=== PATIENT | male | born 1960 | race Hispanic/Latino ===

== ENCOUNTER 2020-11-09 06:34 | Inpatient (IN) | payer BC ==
[2020-11-09] MEDS ORDERED: Ketorolac Tromethamine 30 MG/ML VIAL ONE (07:08)
[2020-11-09 07:35] LABS: #Basophils 0.1 10x3/uL (0.0-0.2); #Monocytes 1.3 10x3/uL (0.0-1.1); #Neutrophils 10.3 10x3/uL (1.5-8.4); %Basophils 0.5 % (0.0-2.0); %Eosinophils 0.1 % (0.0-6.0); %Lymphocytes 13.4 % (18.0-47.0); %Monocytes 9.3 % (0.0-10.0); %Neutrophils 75.7 % (40.0-75.0); Hemoglobin 13.3 g/dL (13.5-17.5); Mean Corpuscular HGB CONC 34.3 g/dL (32.0-36.0); Mean Corpuscular Hemoglobin 30.8 pg (27.0-33.0); Mean Corpuscular Volume 89.8 fl (81.2-95.1); Platelet Count 292 10x3/uL (150-450); RBC Distribution Width 17.3 % (11.5-14.5); Red Blood Cell (RBC) Count 4.32 10x6/uL (4.32-5.72); White Blood Cell (WBC) Count 13.6 10x3/uL (3.5-10.5)
[2020-11-09 07:47] LABS: ALT (SGPT) 27 U/L (8-55); AST (SGOT) 22 U/L (5-34); Albumin 3.9 g/dL (3.5-5.0); Alkaline Phosphatase 101 U/L (40-110); Anion Gap 17 mmol/L (10-20); BUN (Urea Nitrogen) 16 mg/dL (8.4-25.7); Bilirubin, Total 0.4 mg/dL (0.2-1.2); Calc. Creatinine Clearance 0 mL/min (70-130); Carbon Dioxide 22 mmol/L (22-29); Chloride 103 mmol/L (98-107); Globulin 3.3 g/dL (2.4-3.5); Glucose 103 mg/dL (70-105); Potassium 3.8 mmol/L (3.5-5.1); Protein, Total 7.2 g/dL (6.0-8.3); Sodium 138 mmol/L (136-145)
[2020-11-09] MEDS ORDERED: cefTRIAXone\\ROCEPHIN 2 GM VIAL ONE (08:15)
[2020-11-09 08:24] LABS: Bilirubin 1+ (Negative); Blood, Urine 10 (Negative); Clarity Clear (Clear); Glucose, Urine (Dipstick) Normal (Negative); Ketone, Urine 5 mg/dL (Negative); Leukocyte 25 (Negative); Nitrite Negative (Negative); Protein, Urine (Dipstick) 100 mg/dl (Neg-Trace)
[2020-11-09] MEDS ORDERED: Senokot S 8.6-50 MG TAB PO PRN (08:25)
[2020-11-09] MEDS ORDERED: Ondansetron PF 4 MG/2 ML Vial IVP PRN (08:25)
[2020-11-09] MEDS ORDERED: HumaLOG 300 UNITS/3 ML VIAL SC PRN (08:29)
[2020-11-09] MEDS ORDERED: Dextrose 5% in Water 1,000 ML IV PRN (08:29)
[2020-11-09] MEDS ORDERED: Dextrose 50% Abboject 50 ML SYRINGE SLOW IVP PRN (08:29)
[2020-11-09 08:43] LABS: RBC/HPF 0-3 HPF (0-3); Squamous Epithelial 0-3 HPF (0-3)
[2020-11-09 08:44] LABS: Bacteria/HPF 1+ HPF (None Seen); Calcium Oxalate Crystals 1+ HPF (None Seen)
[2020-11-09] MEDS ORDERED: Azithromycin 500 MG VIAL ONE (09:03)
[2020-11-09 09:57] LABS: SARS-CoV-2 NAA Rapid Test Not Detected (NotDetected)
[2020-11-09] MEDS ORDERED: Acetaminophen 500 MG TAB ONE (10:28)
[2020-11-09 11:48] VITALS: BMI 27.4
[2020-11-09] MEDS ORDERED: predniSONE 20 MG TAB PO SCH (12:00)
[2020-11-09] MEDS ORDERED: Losartan Potassium 50 MG TAB PO SCH (12:00)
[2020-11-09] MEDS ORDERED: Enoxaparin Sodium 40 MG/0.4 ML SYRINGE SC SCH (12:00)
[2020-11-09] MEDS: Nicotine 21 MG PATCH TD SCH (15:44)
[2020-11-09] MEDS: Clopidogrel Bisulfate 75 MG TAB PO SCH (15:44)
[2020-11-09] MEDS: Acetaminophen 325 MG TAB PO PRN ×2 (15:55→20:00)
[2020-11-09] MEDS: Atorvastatin Calcium 40 MG TAB PO SCH (20:00)
[2020-11-10] MEDS: Acetaminophen 325 MG TAB PO PRN ×4 (00:15→20:48)
[2020-11-10 05:18] LABS: #Basophils 0.1 10x3/uL (0.0-0.2); #Monocytes 0.7 10x3/uL (0.0-1.1); #Neutrophils 12.3 10x3/uL (1.5-8.4); %Basophils 0.4 % (0.0-2.0); %Lymphocytes 7.4 % (18.0-47.0); %Monocytes 4.8 % (0.0-10.0); %Neutrophils 85.9 % (40.0-75.0); Hemoglobin 12.6 g/dL (13.5-17.5); Mean Corpuscular HGB CONC 34.6 g/dL (32.0-36.0); Mean Corpuscular Hemoglobin 30.8 pg (27.0-33.0); Mean Platelet Volume 11.1 fl (7.4-10.4); Platelet Count 300 10x3/uL (150-450); RBC Distribution Width 17.3 % (11.5-14.5); Red Blood Cell (RBC) Count 4.09 10x6/uL (4.32-5.72); White Blood Cell (WBC) Count 14.3 10x3/uL (3.5-10.5)
[2020-11-10 05:28] LABS: Anion Gap 15 mmol/L (10-20); BUN (Urea Nitrogen) 15 mg/dL (8.4-25.7); Calc. Creatinine Clearance 102 mL/min (70-130); Calcium 9.1 mg/dL (7.8-10.44); Carbon Dioxide 20 mmol/L (22-29); Chloride 103 mmol/L (98-107); Glucose 231 mg/dL (70-105); Potassium 4.2 mmol/L (3.5-5.1); Sodium 134 mmol/L (136-145)
[2020-11-10] MEDS: metFORMIN 500 MG TAB PO SCH ×2 (08:04→08:35)
[2020-11-10] MEDS: Clopidogrel Bisulfate 75 MG TAB PO SCH (08:04)
[2020-11-10] MEDS: cefTRIAXone\\ROCEPHIN 1 GM in Sodium Chloride 0.9% 100 ML IVPB SCH (08:04)
[2020-11-10] MEDS: predniSONE 20 MG TAB PO SCH (08:05)
[2020-11-10] MEDS: Enoxaparin Sodium 40 MG/0.4 ML SYRINGE SC SCH ×2 (08:05→14:34)
[2020-11-10] MEDS: Losartan Potassium 50 MG TAB PO SCH (08:05)
[2020-11-10] MEDS: Azithromycin 500 MG in Sodium Chloride 0.9% 250 ML 250 ML IVPB SCH (09:33)
[2020-11-10] MEDS: Nicotine 21 MG PATCH TD SCH ×2 (14:28→14:34)
[2020-11-10] MEDS: Atorvastatin Calcium 40 MG TAB PO SCH (20:49)
[2020-11-11] MEDS: Acetaminophen 325 MG TAB PO PRN ×5 (00:28→19:27)
[2020-11-11] MEDS: Albuterol Sulfate 2.5 mg/3 ml Neb NEB PRN ×2 (01:43→13:04)
[2020-11-11 06:40] LABS: #Monocytes 0.8 10x3/uL (0.0-1.1); #Neutrophils 9.8 10x3/uL (1.5-8.4); %Basophils 0.2 % (0.0-2.0); %Lymphocytes 11.8 % (18.0-47.0); %Monocytes 6.6 % (0.0-10.0); %Neutrophils 79.8 % (40.0-75.0); Hemoglobin 11.8 g/dL (13.5-17.5); Mean Corpuscular HGB CONC 34.5 g/dL (32.0-36.0); Mean Platelet Volume 10.8 fl (7.4-10.4); Platelet Count 324 10x3/uL (150-450); RBC Distribution Width 17.2 % (11.5-14.5); Red Blood Cell (RBC) Count 3.93 10x6/uL (4.32-5.72); White Blood Cell (WBC) Count 12.2 10x3/uL (3.5-10.5)
[2020-11-11 07:08] LABS: Anion Gap 18 mmol/L (10-20); BUN (Urea Nitrogen) 16 mg/dL (8.4-25.7); Calc. Creatinine Clearance 97 mL/min (70-130); Calcium 9.2 mg/dL (7.8-10.44); Carbon Dioxide 19 mmol/L (22-29); Chloride 101 mmol/L (98-107); Glucose 118 mg/dL (70-105); Potassium 3.8 mmol/L (3.5-5.1); Sodium 134 mmol/L (136-145)
[2020-11-11] MEDS: Losartan Potassium 50 MG TAB PO SCH (10:22)
[2020-11-11] MEDS: Enoxaparin Sodium 40 MG/0.4 ML SYRINGE SC SCH (10:23)
[2020-11-11] MEDS: cefTRIAXone\\ROCEPHIN 1 GM in Sodium Chloride 0.9% 100 ML IVPB SCH (10:23)
[2020-11-11] MEDS: metFORMIN 500 MG TAB PO SCH (10:29)
[2020-11-11] MEDS: predniSONE 20 MG TAB PO SCH (10:29)
[2020-11-11] MEDS: Clopidogrel Bisulfate 75 MG TAB PO SCH (10:29)
[2020-11-11] MEDS: Azithromycin 500 MG in Sodium Chloride 0.9% 250 ML 250 ML IVPB SCH (12:08)
[2020-11-11] MEDS: Nicotine 21 MG PATCH TD SCH (12:40)
[2020-11-11] MEDS: Atorvastatin Calcium 40 MG TAB PO SCH (23:43)
[2020-11-12] MEDS: Acetaminophen 325 MG TAB PO PRN ×4 (03:01→17:09)
[2020-11-12 04:10] LABS: #Basophils 0.1 10x3/uL (0.0-0.2); #Neutrophils 8.8 10x3/uL (1.5-8.4); %Basophils 0.6 % (0.0-2.0); %Eosinophils 0.3 % (0.0-6.0); %Lymphocytes 12.6 % (18.0-47.0); %Monocytes 8.7 % (0.0-10.0); %Neutrophils 74.3 % (40.0-75.0); Hemoglobin 11.4 g/dL (13.5-17.5); Mean Corpuscular HGB CONC 34.9 g/dL (32.0-36.0); Mean Corpuscular Hemoglobin 30.3 pg (27.0-33.0); Platelet Count 308 10x3/uL (150-450); RBC Distribution Width 17.5 % (11.5-14.5); Red Blood Cell (RBC) Count 3.76 10x6/uL (4.32-5.72); White Blood Cell (WBC) Count 11.8 10x3/uL (3.5-10.5)
[2020-11-12 04:25] LABS: ALT (SGPT) 31 U/L (8-55); AST (SGOT) 27 U/L (5-34); Albumin 3.1 g/dL (3.5-5.0); Alkaline Phosphatase 127 U/L (40-110); Anion Gap 17 mmol/L (10-20); BUN (Urea Nitrogen) 12 mg/dL (8.4-25.7); Bilirubin, Total 0.7 mg/dL (0.2-1.2); CRP (Inflammatory) 22.34 mg/dL (= or < 0.5); Calc. Creatinine Clearance 112 mL/min (70-130); Carbon Dioxide 20 mmol/L (22-29); Chloride 100 mmol/L (98-107); Globulin 2.8 g/dL (2.4-3.5); Glucose 101 mg/dL (70-105); Potassium 3.7 mmol/L (3.5-5.1); Protein, Total 5.9 g/dL (6.0-8.3); Sodium 133 mmol/L (136-145)
[2020-11-12] MEDS: Enoxaparin Sodium 40 MG/0.4 ML SYRINGE SC SCH (08:03)
[2020-11-12] MEDS: Losartan Potassium 50 MG TAB PO SCH (08:03)
[2020-11-12] MEDS: Clopidogrel Bisulfate 75 MG TAB PO SCH (08:03)
[2020-11-12] MEDS: metFORMIN 500 MG TAB PO SCH (08:03)
[2020-11-12] MEDS: Nicotine 21 MG PATCH TD SCH (14:26)
[2020-11-12] MEDS: Atorvastatin Calcium 40 MG TAB PO SCH (20:49)
[2020-11-13] MEDS: Enoxaparin Sodium 40 MG/0.4 ML SYRINGE SC SCH (10:27)
[2020-11-13] MEDS: Clopidogrel Bisulfate 75 MG TAB PO SCH (10:27)
[2020-11-13] MEDS: metFORMIN 500 MG TAB PO SCH (10:27)
[2020-11-13] MEDS: Losartan Potassium 50 MG TAB PO SCH (10:27)
[2020-11-13] MEDS: Albuterol Sulfate 2.5 mg/3 ml Neb NEB PRN (10:31)
[2020-11-13] MEDS: Nicotine 21 MG PATCH TD SCH (10:34)
[2020-11-13] MEDS ORDERED: Sodium Chloride 0.9% 1,000 ML IV SCH (18:00)
[2020-11-13] MEDS: Atorvastatin Calcium 40 MG TAB PO SCH (20:35)
[2020-11-14 06:16] LABS: #Basophils 0.1 10x3/uL (0.0-0.2); #Eosinphils 0.2 10x3/uL (0.0-0.5); #Neutrophils 7.7 10x3/uL (1.5-8.4); %Basophils 0.5 % (0.0-2.0); %Eosinophils 1.4 % (0.0-6.0); %Lymphocytes 14.9 % (18.0-47.0); %Monocytes 9.2 % (0.0-10.0); %Neutrophils 69.1 % (40.0-75.0); Mean Corpuscular HGB CONC 34.4 g/dL (32.0-36.0); Mean Corpuscular Hemoglobin 30.6 pg (27.0-33.0); Mean Platelet Volume 10.4 fl (7.4-10.4); Platelet Count 374 10x3/uL (150-450); RBC Distribution Width 17.2 % (11.5-14.5); Red Blood Cell (RBC) Count 3.92 10x6/uL (4.32-5.72); White Blood Cell (WBC) Count 11.1 10x3/uL (3.5-10.5)
[2020-11-14 06:32] LABS: Anion Gap 16 mmol/L (10-20); BUN (Urea Nitrogen) 13 mg/dL (8.4-25.7); Calc. Creatinine Clearance 115 mL/min (70-130); Calcium 9.5 mg/dL (7.8-10.44); Carbon Dioxide 21 mmol/L (22-29); Chloride 102 mmol/L (98-107); Glucose 119 mg/dL (70-105); Potassium 4.2 mmol/L (3.5-5.1); Sodium 135 mmol/L (136-145)
[2020-11-14 08:13] VITALS: BP 119/75; TEMP 97.3
[2020-11-14] MEDS: metFORMIN 500 MG TAB PO SCH (10:02)
[2020-11-14] MEDS: Clopidogrel Bisulfate 75 MG TAB PO SCH (10:03)
[2020-11-14] MEDS: Enoxaparin Sodium 40 MG/0.4 ML SYRINGE SC SCH (10:03)
[2020-11-14] MEDS: Losartan Potassium 50 MG TAB PO SCH (10:03)
== END 2020-11-14 10:30 | disposition home or self-care (01) | DRG 871 ==
LOC: CSHERS 06:34 → SUATTDRO 06:34 → CSHTELE 11:00
PROVIDERS: ADMIT Internal Medicine; ATTEND Internal Medicine
DX: A41.9 Sepsis, unspecified organism (principal); J18.9 Pneumonia, unspecified organism; N39.0 Urinary tract infection, site not specified; J44.0 Chronic obstructive pulmonary disease with (acute) lower respiratory infection; Z20.822 Contact with and (suspected) exposure to COVID-19; M06.9 Rheumatoid arthritis, unspecified; I10 Essential (primary) hypertension; E78.5 Hyperlipidemia, unspecified; F17.210 Nicotine dependence, cigarettes, uncomplicated; I73.9 Peripheral vascular disease, unspecified; E11.9 Type 2 diabetes mellitus without complications; Z79.01 Long term (current) use of anticoagulants; Z79.891 Long term (current) use of opiate analgesic; Z79.899 Other long term (current) drug therapy; Z88.0 Allergy status to penicillin; Z88.2 Allergy status to sulfonamides; Z91.048 Other nonmedicinal substance allergy status
CPT/HCPCS: 36415; 36416; 71045; 80048; 80053; 81003; 81015; 82728; 83605; 83615; 84145; 84484; 85025; 86140; 87040; 87086; 93005; 94640; 94760; 96365; 96367; 96375; J0456; J0696; J1650; J1885; J1956; J3490; J7050; J7512; J7611; U0002

== ENCOUNTER 2021-12-02 09:45 | Day surgery (SDC) | payer BC | END 2021-12-02 13:48 | disposition home or self-care (01) | LOC: CSHSDC/OP 09:45 | PROVIDERS: ATTEND Specialist | PROC: 30233N1 Transfusion of Nonautologous Red Blood Cells into Peripheral Vein, Percutaneous Approach (ICD-10-PCS; principal; 2021-12-02) | DX: D50.8 Other iron deficiency anemias (principal) | CPT/HCPCS: 36415; 36430; 62272; 86850; 86900; 86901; P9016 ==

== ENCOUNTER 2022-03-03 08:34 | Outpatient (CLI) | payer BC | END 2022-03-03 08:35 | disposition home or self-care (01) | LOC: CSHLAB 08:34 | PROVIDERS: ATTEND Internal Medicine Hematology & Oncology | DX: Z20.822 Contact with and (suspected) exposure to COVID-19 (principal); D47.2 Monoclonal gammopathy | CPT/HCPCS: 87811 ==

== ENCOUNTER → 2022-06-20 | Day surgery (SDC) | payer BC ==
[~2022-06-20] MED LIST: Fentanyl 100 MCG/2 ML VIAL ONE; Lidocaine 1% PF 5 ML VIAL ONE; Midazolam HCl 2 mg/2 ml Vial ONE; Sodium Bicarbonate 2.5 MEQ/5 ML VIAL ONE
[2022-06-20 09:34] LABS: INR-International Normal Ratio 0.9; Prothrombin Time 10.1 sec (9.5-12.1)
== END ==
LOC: CSHCT 07:47
PROVIDERS: ATTEND Internal Medicine Hematology & Oncology
PROC: 07DR3ZX Extraction of Iliac Bone Marrow, Percutaneous Approach, Diagnostic (ICD-10-PCS; principal; 2022-06-20)
PROC: 079T3ZX Drainage of Bone Marrow, Percutaneous Approach, Diagnostic (ICD-10-PCS; principal; 2022-06-20)
DX: C90.00 Multiple myeloma not having achieved remission (principal); D70.4 Cyclic neutropenia; I10 Essential (primary) hypertension; E11.51 Type 2 diabetes mellitus with diabetic peripheral angiopathy without gangrene; M19.90 Unspecified osteoarthritis, unspecified site; M81.0 Age-related osteoporosis without current pathological fracture; D64.9 Anemia, unspecified; F17.210 Nicotine dependence, cigarettes, uncomplicated; Z79.84 Long term (current) use of oral hypoglycemic drugs; Z79.899 Other long term (current) drug therapy; Z88.2 Allergy status to sulfonamides; Z88.0 Allergy status to penicillin; Z88.8 Allergy status to other drugs, medicaments and biological substances; Z98.890 Other specified postprocedural states
CPT/HCPCS: 38222; 85610; 88305; 88311; 88313; 99152; J2250; J3010